=== PATIENT | female | born 1990 | race Caucasian/White ===

== ENCOUNTER 2021-02-06 22:29 | Emergency (ER) | payer MEDICAID ==
[~2021-02-06] VITALS: Ht 170.2 cm; Wt 68.0 kg
[2021-02-06] MEDS ORDERED: KETOROLAC 60MG/2ML VIAL IM ONE (23:30)
[2021-02-07] MEDS ORDERED: TOPUD PO (11:27)
[2021-02-07 11:50] VITALS: BP 93/55
== END 2021-02-07 12:07 | disposition home or self-care (01) ==
LOC: ER 22:29
DX: M54.9 Dorsalgia, unspecified (principal)
CPT/HCPCS: 96372; 99285; J1885

== ENCOUNTER 2021-02-20 20:43 | Emergency (ER) | payer MEDICAID ==
[~2021-02-20] VITALS: Ht 165.1 cm; Wt 59.0 kg
[~2021-02-20 20:43] MED LIST: TOPUD PO
[2021-02-20] MEDS: SODIUM CHLORIDE 0.9% 1,000 ML IV ONE (22:15)
[2021-02-20 23:15] LABS: BASOPHILS % 0.4 % (0.0-2.0); EOSINOPHILS % 1.6 % (0.0-5.0); HEMATOCRIT. 37.2 % (36.0-48.0); HEMOGLOBIN. 12.4 g/dL (12.0-16.0); LYMPHOCYTES % 34.8 % (20.0-50.0); MEAN CORPUSCULAR VOLUME 92.6 fL (81.0-99.0); MEAN PLATELET VOLUME 7.7 fl (7.4-10.4); MONOCYTES % 7.5 % (2.0-8.0); NEUTROPHILS % 55.7 % (40.0-76.0); PLATELET 274 x1000/uL (130-400); RED BLOOD CELL COUNT 4.01 mill/uL (4.2-5.4); RED CELL DISTRIBUTION WIDTH 12.3 % (11.6-14.6)
[2021-02-20 23:25] LABS: CHLORIDE 110 mEq/L (98-107)
[2021-02-20 23:28] LABS: ETHANOL BLOOD < 10 mg/dL
[2021-02-20 23:31] LABS: CLARITY URINE CLEAR (CLEAR); COLOR URINE YELLOW (YELLOW); KETONES URINE NEGATIVE (NEGATIVE); LEUKOCYTE ESTERASE URINE 1+ (NEGATIVE); NITRITE URINE NEGATIVE (NEGATIVE); OCCULT BLOOD URINE TRACE (NEGATIVE); PH URINE 6.5 (4.5-8.0); PROTEIN URINE NEGATIVE (NEGATIVE); SPECIFIC GRAVITY URINE 1.024 (1.005-1.030)
[2021-02-20 23:47] LABS: HCG SCREEN NEGATIVE
[2021-02-21 00:28] LABS: *AMPHETAMINES SCREEN URINE NEGATIVE (NEGATIVE); *BARBITURATES SCREEN URINE NEGATIVE (NEGATIVE); *BENZODIAZEPINES SCREEN URINE NEGATIVE (NEGATIVE)
[2021-02-21 00:29] LABS: *COCAINE SCREEN URINE NEGATIVE (NEGATIVE); CANNABINOID URINE SCREEN NEGATIVE (NEGATIVE); METHADONE URINE SCREEN NEGATIVE (NEGATIVE); OPIATES URINE SCREEN NEGATIVE (NEGATIVE); PHENCYCLIDINE URINE SCREEN NEGATIVE (NEGATIVE)
[2021-02-21 00:54] VITALS: BP 120/76
== END 2021-02-21 01:27 | disposition home or self-care (01) ==
LOC: ER 20:43
DX: R55 Syncope and collapse (principal); F43.0 Acute stress reaction; I25.2 Old myocardial infarction
CPT/HCPCS: 36415; 71045; 80048; 80305; 80307; 80320; 80329; 81003; 84484; 84703; 85025; 93005; 96360; 96361; 99285; J7030; G0480